=== PATIENT | male | born 1960 | race Caucasian/White ===

== ENCOUNTER → 2016-12-17 | Outpatient (CLI) | payer SELFPAY ==
--- NOTE | 2016-12-17 14:09 | CT ---
HISTORY: Heart screening. Cardiac CTA with calcium scoring Technique: Multiple axial images of the chest were obtained on a [address] from the aortic arch to the base of the heart with retrospective cardiac gating. Noncontrast evaluation of th e heart was performed for calcium scoring with prospective gating. Dose reduction techniques includin g Automated Exposure Control (AEC) and adjustment of mA and kV were utilized. Findings: A total calcium score of 135 is observed. The score results in moderate likelihood of coronary event s given the age and sex matched cohort analysis. Disease is seen throughout all the coronary arteries. This is most significant within the left anteri or descending and right coronary arteries. Extracardiac findings: No pathologically enlarged lymphadenopathy can be observed. The aortic arch is unremarkable in its a ppearance with normal vascular configuration. No significant pericardial effusion can be identified. The visualized portions of the lung parenchyma are unremarkable. No lytic or blastic lesions can b e identified within the visualized bony thorax. The visualized portions of the abdomen demonstrate n ormal perfusion patterns of the spleen and liver. IMPRESSION: Total calcium score of 135 resulting in a moderate likelihood of coronary artery events. Reported By:
== END ==
LOC: RAD 08:43
PROVIDERS: ATTEND Internal Medicine Cardiovascular Disease
DX: Z13.6 Encounter for screening for cardiovascular disorders (principal)